=== PATIENT | female | born 1945 | race Caucasian/White ===

== ENCOUNTER 2017-10-18 06:50 | Emergency (ER) | payer OTHER ==
[2017-10-18] MEDS ORDERED: SODIUM CHLORIDE 0.9% FLUSH 10 ML SOL IV PRN (07:01)
[2017-10-18] MEDS ORDERED: NITROGLYCERIN 0.4 MG TAB SL PRN (07:01)
[2017-10-18 07:09] LABS: BASOPHILS % (AUTO) 0 % (0-3); EOSINOPHILS % (AUTO) 2 % (0-9); HEMATOCRIT 40 % (35-47); MEAN CORPUSCULAR HGB CONC 35.3 gm/dl (32.0-36.0); MEAN CORPUSCULAR VOLUME 86 fL (81-99); MONOCYTES % (AUTO) 7.7 % (0-12); NEUTROPHILS % (AUTO) 70.6 % (37-80)
[2017-10-18 07:12] VITALS: TEMP 98.2
[2017-10-18] MEDS ORDERED: SODIUM CHLORIDE 0.9% 1000ML 300 ML IV ONE (07:25)
[2017-10-18] MEDS ORDERED: SODIUM CHLORIDE 0.9% 500 ML SOL IV SCH (07:30)
[2017-10-18 07:32] LABS: CALCIUM 8.7 mg/dl (8.5-10.1); GLOM FILT RATE 46 mL/min (>60); POTASSIUM 3.7 mMol/L (3.5-5.1); SODIUM 140 mMol/L (136-145)
[2017-10-18 08:17] VITALS: RESP 18; O2SAT 97
[2017-10-18 08:18] VITALS: BP 101/60; PULSE 64
== END 2017-10-18 08:50 | disposition home or self-care (01) | DRG 313 ==
LOC: ED 06:50
DX: R07.9 Chest pain, unspecified (principal); I25.10 Atherosclerotic heart disease of native coronary artery without angina pectoris; R06.00 Dyspnea, unspecified; R51 Headache
CPT/HCPCS: 36415; 71010; 80048; 82550; 84484; 85025; 85610; 85730; 93005; 99284

== ENCOUNTER 2019-02-26 22:54 | Emergency (ER) | payer OTHER ==
[2019-02-26 23:05] VITALS: RESP 18; TEMP 97.9
[2019-02-26] MEDS ORDERED: KETOROLAC TROMETHAMINE 30 MG/ML SOL IV ONE (23:19)
[2019-02-26] MEDS ORDERED: KETOROLAC TROMETHAMINE 30 MG/ML SOL ONE (23:19)
[2019-02-27 00:26] VITALS: BP 136/90
[2019-02-27 00:27] LABS: BASOPHILS % (AUTO) 1 % (0-3); EOSINOPHILS % (AUTO) 1 % (0-9); HEMATOCRIT 39 % (35-47); LYMPHOCYTES % (AUTO) 7.6 % (10-50); MEAN CORPUSCULAR HEMOGLOBIN 29.8 pg (27.0-32.0); MEAN CORPUSCULAR VOLUME 90 fL (81-99); MONOCYTES % (AUTO) 6.9 % (0-12); NEUTROPHILS % (AUTO) 84.3 % (37-80)
[2019-02-27 00:34] LABS: CALCIUM 8.6 mg/dl (8.5-10.1); CARBON DIOXIDE 28.5 mEq/L (21-32); CREATININE 0.97 mg/dl (0.60-1.00); POTASSIUM 3.8 mMol/L (3.5-5.1)
[2019-02-27 00:44] VITALS: PULSE 95; O2SAT 90
[2019-02-27] MEDS ORDERED: SODIUM CHLORIDE 0.9% FLUSH 10 ML SOL IV PRN (23:15)
== END 2019-02-27 00:40 | disposition short-term general hospital (02) | DRG 536 ==
LOC: ED 22:54
DX: S72.001A Fracture of unspecified part of neck of right femur, initial encounter for closed fracture (principal); W19.XXXA Unspecified fall, initial encounter
CPT/HCPCS: 36415; 73502; 80048; 85025; 96374; 99284; 99285; G0390; J1885

== ENCOUNTER 2019-04-09 13:49 | Emergency (ER) | payer MEDICARE, OTHER ==
[2019-04-09 14:00] VITALS: TEMP 98.3
[2019-04-09 14:51] LABS: BASOPHILS % (AUTO) 1 % (0-3); EOSINOPHILS % (AUTO) 5 % (0-9); HEMATOCRIT 38 % (35-47); HEMOGLOBIN 12.3 gm/dl (12.0-15.5); LYMPHOCYTES % (AUTO) 20.1 % (10-50); MEAN CORPUSCULAR HEMOGLOBIN 30.2 pg (27.0-32.0); MEAN CORPUSCULAR HGB CONC 32.2 gm/dl (32.0-36.0); MEAN CORPUSCULAR VOLUME 94 fL (81-99); MONOCYTES % (AUTO) 10.3 % (0-12); NEUTROPHILS % (AUTO) 63.8 % (37-80)
[2019-04-09 14:52] VITALS: BP 107/59; PULSE 63; RESP 18
[2019-04-09 14:56] LABS: ALBUMIN 2.6 gm/dl (3.4-5.0); ALKALINE PHOSPHATASE 166 IU/L (46-116); ALT 32 IU/L (14-63); AST 51 IU/L (15-37); BILIRUBIN,TOTAL 0.6 mg/dl (0.2-1.0); BLOOD UREA NITROGEN 21 mg/dl (7-18); CALCIUM 11.9 mg/dl (8.5-10.1); CHLORIDE 101 mMol/L (98-107); GLUCOSE 124 mg/dl (74-106); POTASSIUM 3.3 mMol/L (3.5-5.1); SODIUM 142 mMol/L (136-145); TOTAL PROTEIN 6.7 gm/dl (6.4-8.2); TROP I < 0.017 ng/ml (0.000-0.056)
[2019-04-09 14:58] LABS: CARBON DIOXIDE 40.5 mEq/L (21-32)
[2019-04-09 16:03] VITALS: O2SAT 95
== END 2019-04-09 16:00 | DRG 156 ==
LOC: ED 13:49
DX: H93.13 Tinnitus, bilateral (principal); R09.02 Hypoxemia; R06.2 Wheezing
CPT/HCPCS: 36415; 80053; 83880; 84484; 85025; 99283

== ENCOUNTER 2019-04-16 16:51 | Inpatient (IN) | payer OTHER ==
[2019-04-16] MEDS ORDERED: SODIUM CHLORIDE 0.9% 500 ML 500 ML IV ONE ×2 (16:55→18:24)
[2019-04-16 17:19] LABS: BASOPHILS % (AUTO) 1 % (0-3); EOSINOPHILS % (AUTO) 6 % (0-9); HEMATOCRIT 37 % (35-47); HEMOGLOBIN 12.2 gm/dl (12.0-15.5); LYMPHOCYTES % (AUTO) 22.1 % (10-50); MEAN CORPUSCULAR HEMOGLOBIN 30.2 pg (27.0-32.0); MEAN CORPUSCULAR HGB CONC 32.8 gm/dl (32.0-36.0); MEAN CORPUSCULAR VOLUME 92 fL (81-99); MONOCYTES % (AUTO) 9.9 % (0-12); NEUTROPHILS % (AUTO) 61.9 % (37-80)
[2019-04-16] MEDS: SODIUM CHLORIDE 0.9% FLUSH 10 ML SOL IV SCH (17:20)
[2019-04-16 17:58] LABS: ALBUMIN 2.8 gm/dl (3.4-5.0); BILIRUBIN,TOTAL 0.5 mg/dl (0.2-1.0); CARBON DIOXIDE 43.8 mEq/L (21-32); CREATININE 2.06 mg/dl (0.60-1.00); POTASSIUM 3.2 mMol/L (3.5-5.1); TOTAL PROTEIN 6.6 gm/dl (6.4-8.2)
[2019-04-16 18:14] LABS: CALCIUM 14.7 mg/dl (8.5-10.1)
[2019-04-16] MEDS ORDERED: BISACODYL 10 MG SUP PR PRN (18:28)
[2019-04-16] MEDS ORDERED: POTASSIUM CHLORIDE 2 MEQ/ML 60 MEQ, LIDOCAINE HCL 1% MDV 2 ML in SODIUM CHLORIDE 0.9% 1... IV ONE (18:37)
[2019-04-16 19:15] LABS: THYROID STIMULATING HORMONE 4.196 uIU/ml (0.358-3.740); TROP I < 0.017 ng/ml (0.000-0.056)
[2019-04-16] MEDS: [UNRECOGNIZED DRUG - OTHER] SC SCH (19:20)
[2019-04-16] MEDS ORDERED: LIDOCAINE HCL 1% MPF 30 SOL ONE (19:36)
[2019-04-16] MEDS ORDERED: POTASSIUM CHLORIDE 2 MEQ/ML SOL IV ONE (19:37)
[2019-04-16] MEDS: GABAPENTIN 300 MG CAP PO SCH (20:43)
[2019-04-16] MEDS: POLYETHYLENE GLYCOL 17 GM/1 TBS PDS PO PRN (20:43)
[2019-04-16] MEDS: SENNOSIDES A AND B 8.6 MG TAB PO PRN (20:47)
[2019-04-16] MEDS: DOCUSATE SODIUM 100 MG SGL PO PRN (20:47)
[2019-04-16] MEDS: ENOXAPARIN 40 MG SOL SC SCH (20:48)
[2019-04-16] MEDS ORDERED: RANITIDINE HCL 150 MG TAB PO SCH (21:00)
[2019-04-16 23:42] LABS: ALBUMIN 2.8 gm/dl (3.4-5.0); BILIRUBIN,TOTAL 0.5 mg/dl (0.2-1.0); CARBON DIOXIDE 39.3 mEq/L (21-32); CREATININE 1.98 mg/dl (0.60-1.00); MAGNESIUM 2.2 mg/dl (1.8-2.4); POTASSIUM 3.4 mMol/L (3.5-5.1); TOTAL PROTEIN 6.8 gm/dl (6.4-8.2)
[2019-04-16 23:44] LABS: CALCIUM 13.9 mg/dl (8.5-10.1)
[2019-04-17] MEDS: SODIUM CHLORIDE 0.9% FLUSH 10 ML SOL IV SCH ×3 (03:27→19:19)
[2019-04-17] MEDS: ACETAMINOPHEN 325 MG PO PRN ×2 (05:40→09:50)
[2019-04-17 07:29] LABS: BASOPHILS % (AUTO) 1 % (0-3); EOSINOPHILS % (AUTO) 5 % (0-9); HEMATOCRIT 36 % (35-47); HEMOGLOBIN 11.7 gm/dl (12.0-15.5); LYMPHOCYTES % (AUTO) 21.1 % (10-50); MEAN CORPUSCULAR HEMOGLOBIN 30.6 pg (27.0-32.0); MEAN CORPUSCULAR HGB CONC 32.9 gm/dl (32.0-36.0); MEAN CORPUSCULAR VOLUME 93 fL (81-99); NEUTROPHILS % (AUTO) 63.4 % (37-80)
[2019-04-17 07:58] LABS: ALBUMIN 2.6 gm/dl (3.4-5.0); BILIRUBIN,TOTAL 0.4 mg/dl (0.2-1.0); CARBON DIOXIDE 38.1 mEq/L (21-32); TOTAL PROTEIN 6.5 gm/dl (6.4-8.2)
[2019-04-17 07:59] LABS: CALCIUM 13.3 mg/dl (8.5-10.1); POTASSIUM 3.5 mMol/L (3.5-5.1)
[2019-04-17] MEDS ORDERED: [UNRECOGNIZED DRUG - OTHER] SC ONE (08:25)
[2019-04-17] MEDS ORDERED: CALCITONIN (SALMON) 200 IU/Actuation SPR NAS SCH (09:00)
[2019-04-17] MEDS ORDERED: METOPROLOL SUCCINATE 25 MG TAB.ER.24H PO SCH (09:00)
[2019-04-17] MEDS: SODIUM CHLORIDE 0.9% 1000ML 1,000 ML IV SCH (09:38)
[2019-04-17] MEDS: ASPIRIN 325 MG TAB PO SCH (09:44)
[2019-04-17] MEDS: GABAPENTIN 300 MG CAP PO SCH ×2 (09:44→21:10)
[2019-04-17] MEDS: METOPROLOL SUCCINATE 50 MG TER PO SCH (09:45)
[2019-04-17] MEDS: FAMOTIDINE 20 MG TAB PO SCH ×2 (09:46→21:10)
[2019-04-17] MEDS: [UNRECOGNIZED DRUG - OTHER] SC SCH (12:34)
[2019-04-17] MEDS ORDERED: [UNRECOGNIZED DRUG - OTHER] SC PRN (13:00)
[2019-04-17] MEDS: DOCUSATE SODIUM 100 MG SGL PO PRN (13:25)
[2019-04-17] MEDS: SENNOSIDES A AND B 8.6 MG TAB PO PRN (13:25)
[2019-04-17] MEDS ORDERED: APAP/HYDROCODONE 1 EACH TABLET PO PRN (15:09)
[2019-04-17] MEDS ORDERED: LACTULOSE 10 GM/15 ML SOL PO ONE (15:30)
[2019-04-17 16:23] LABS: ALBUMIN 2.7 gm/dl (3.4-5.0); BILIRUBIN,TOTAL 0.5 mg/dl (0.2-1.0); CALCIUM 12.5 mg/dl (8.5-10.1); CREATININE 2.26 mg/dl (0.60-1.00); POTASSIUM 3.2 mMol/L (3.5-5.1); TOTAL PROTEIN 6.7 gm/dl (6.4-8.2)
[2019-04-17 16:28] LABS: CARBON DIOXIDE 36.8 mEq/L (21-32)
[2019-04-17] MEDS ORDERED: POTASSIUM CHLORIDE 2 MEQ/ML 60 MEQ, LIDOCAINE HCL 1% MDV 2 ML in SODIUM CHLORIDE 0.9% 1... IV ONE (16:49)
[2019-04-17] MEDS ORDERED: POTASSIUM CHLORIDE 2 MEQ/ML SOL IV ONE (17:21)
[2019-04-17] MEDS ORDERED: LIDOCAINE HCL 1% MPF 30 SOL ONE (17:22)
[2019-04-17] MEDS: ENOXAPARIN 40 MG SOL SC SCH (21:10)
[2019-04-18] MEDS: SODIUM CHLORIDE 0.9% 1000ML 1,000 ML IV SCH ×3 (02:40→15:31)
[2019-04-18] MEDS: SODIUM CHLORIDE 0.9% FLUSH 10 ML SOL IV SCH ×3 (02:40→20:38)
[2019-04-18 06:58] LABS: BASOPHILS % (AUTO) 0 % (0-3); EOSINOPHILS % (AUTO) 4 % (0-9); HEMATOCRIT 35 % (35-47); HEMOGLOBIN 11.5 gm/dl (12.0-15.5); LYMPHOCYTES % (AUTO) 16.4 % (10-50); MEAN CORPUSCULAR HEMOGLOBIN 30.5 pg (27.0-32.0); MEAN CORPUSCULAR HGB CONC 32.7 gm/dl (32.0-36.0); MEAN CORPUSCULAR VOLUME 93 fL (81-99); MONOCYTES % (AUTO) 9.2 % (0-12)
[2019-04-18 07:12] LABS: ALBUMIN 2.6 gm/dl (3.4-5.0); BILIRUBIN,TOTAL 0.4 mg/dl (0.2-1.0); CALCIUM 12.2 mg/dl (8.5-10.1); CARBON DIOXIDE 34.6 mEq/L (21-32); CREATININE 2.48 mg/dl (0.60-1.00); MAGNESIUM 1.9 mg/dl (1.8-2.4); POTASSIUM 3.7 mMol/L (3.5-5.1); TOTAL PROTEIN 6.5 gm/dl (6.4-8.2)
[2019-04-18] MEDS: ASPIRIN 325 MG TAB PO SCH (08:59)
[2019-04-18] MEDS: FAMOTIDINE 20 MG TAB PO SCH ×2 (09:00→20:39)
[2019-04-18] MEDS: GABAPENTIN 300 MG CAP PO SCH ×2 (09:00→20:38)
[2019-04-18] MEDS: METOPROLOL SUCCINATE 50 MG TER PO SCH (09:54)
[2019-04-18] MEDS: POLYETHYLENE GLYCOL 17 GM/1 TBS PDS PO PRN (13:19)
[2019-04-18 13:38] LABS: APPEARANCE,URINE Clear; BILIRUBIN,URINE NEGATIVE (NEGATIVE); COLOR,URINE Yellow; GLUCOSE, URINE (UA) NEGATIVE (NEGATIVE); KETONES,URINE NEGATIVE (NEGATIVE); LEUKOCYTE ESTERASE ,URINE 1+ (NEGATIVE); NITRATE,URINE NEGATIVE (NEGATIVE); OCCULT BLOOD,URINE NEGATIVE (NEG-TRACE); PH,URINE 7.5; UROBILINOGEN,URINE 0.2 (0.2-1.0 EU)
[2019-04-18 13:55] LABS: BACTERIA 1+ (< 1+); CRYSTALS NEGATIVE (0-3 AVE/HPF); RBC,URINE 0-2 (0-3AV/HPF)
[2019-04-18 15:13] LABS: ALBUMIN 2.6 gm/dl (3.4-5.0); BILIRUBIN,TOTAL 0.4 mg/dl (0.2-1.0); CALCIUM 11.9 mg/dl (8.5-10.1); CREATININE 2.5 mg/dl (0.60-1.00); POTASSIUM 3.7 mMol/L (3.5-5.1); TOTAL PROTEIN 6.5 gm/dl (6.4-8.2)
[2019-04-18 15:17] LABS: CARBON DIOXIDE 33.1 mEq/L (21-32)
[2019-04-18] MEDS: ACETAMINOPHEN 325 MG PO PRN (15:33)
[2019-04-18] MEDS: ENOXAPARIN 40 MG SOL SC SCH (20:38)
[2019-04-18] MEDS: SENNOSIDES A AND B 8.6 MG TAB PO PRN (20:39)
[2019-04-18] MEDS: DOCUSATE SODIUM 100 MG SGL PO PRN (20:39)
[2019-04-18 22:11] LABS: *CREATININE URINE RANDOM 32.9 mg/dL; *PROTEIN URINE RANDOM 12.5 mg/dL (1.0-14.0)
[2019-04-19] MEDS: SODIUM CHLORIDE 0.9% 1000ML 1,000 ML IV SCH ×3 (01:26→22:36)
[2019-04-19] MEDS: SODIUM CHLORIDE 0.9% FLUSH 10 ML SOL IV SCH ×6 (01:26→21:02)
[2019-04-19 07:19] LABS: ALBUMIN 2.5 gm/dl (3.4-5.0); BILIRUBIN,TOTAL 0.4 mg/dl (0.2-1.0); CALCIUM 12.2 mg/dl (8.5-10.1); CREATININE 2.43 mg/dl (0.60-1.00); POTASSIUM 3.4 mMol/L (3.5-5.1); TOTAL PROTEIN 6.4 gm/dl (6.4-8.2)
[2019-04-19] MEDS: ACETAMINOPHEN 325 MG PO PRN ×3 (07:22→22:24)
[2019-04-19] MEDS ORDERED: ZOLEDRONIC ACID IV ONE ×2 (08:42→10:00)
[2019-04-19] MEDS ORDERED: [UNRECOGNIZED DRUG - OTHER] SC ONE ×2 (08:43→10:00)
[2019-04-19] MEDS ORDERED: POTASSIUM CHLORIDE 2 MEQ/ML 60 MEQ, LIDOCAINE HCL 1% MDV 2 ML in SODIUM CHLORIDE 0.9% 1... IV ONE ×2 (08:46→10:00)
[2019-04-19] MEDS: ASPIRIN 325 MG TAB PO SCH (09:03)
[2019-04-19] MEDS: GABAPENTIN 300 MG CAP PO SCH ×2 (09:03→21:03)
[2019-04-19] MEDS: METOPROLOL SUCCINATE 25 MG TAB.ER.24H PO SCH (09:04)
[2019-04-19] MEDS: FAMOTIDINE 20 MG TAB PO SCH ×2 (09:04→21:03)
[2019-04-19] MEDS: POLYETHYLENE GLYCOL 17 GM/1 TBS PDS PO PRN ×2 (09:08→21:02)
[2019-04-19] MEDS ORDERED: POTASSIUM CHLORIDE 2 MEQ/ML SOL IV ONE (10:07)
[2019-04-19] MEDS ORDERED: LIDOCAINE HCL 1% MPF 30 SOL ONE (10:08)
[2019-04-19] MEDS ORDERED: ZOLEDRONIC ACID 4 MG/5 ML IV NR (10:45)
[2019-04-19] MEDS ORDERED: CEFTRIAXONE 1 GM PDS 1 GM in SODIUM CHLORIDE 0.9% 50 ML 50 ML IV SCH (15:00)
[2019-04-19] MEDS ORDERED: DOXYCYCLINE 100 MG PDS 100 MG in SODIUM CHLORIDE 0.9% 100 ML 100 ML IV SCH (16:00)
[2019-04-19] MEDS: DOCUSATE SODIUM 100 MG SGL PO PRN (21:02)
[2019-04-19] MEDS: SENNOSIDES A AND B 8.6 MG TAB PO PRN (21:03)
[2019-04-19] MEDS: ENOXAPARIN 40 MG SOL SC SCH (21:03)
[2019-04-19] MEDS: QUETIAPINE FUMARATE 25 MG TAB PO PRN (22:23)
[2019-04-20] MEDS: SODIUM CHLORIDE 0.9% FLUSH 10 ML SOL IV SCH ×3 (00:01→19:01)
[2019-04-20 07:38] LABS: BASOPHILS % (AUTO) 1 % (0-3); EOSINOPHILS % (AUTO) 6 % (0-9); HEMATOCRIT 35 % (35-47); HEMOGLOBIN 11.2 gm/dl (12.0-15.5); LYMPHOCYTES % (AUTO) 20.9 % (10-50); MEAN CORPUSCULAR HEMOGLOBIN 29.8 pg (27.0-32.0); MEAN CORPUSCULAR HGB CONC 32.3 gm/dl (32.0-36.0); MEAN CORPUSCULAR VOLUME 92 fL (81-99); MONOCYTES % (AUTO) 10.4 % (0-12); NEUTROPHILS % (AUTO) 62.1 % (37-80)
[2019-04-20 08:25] LABS: ALBUMIN 2.4 gm/dl (3.4-5.0); BILIRUBIN,TOTAL 0.4 mg/dl (0.2-1.0); CALCIUM 11.1 mg/dl (8.5-10.1); CARBON DIOXIDE 24.4 mEq/L (21-32); CREATININE 2.15 mg/dl (0.60-1.00); POTASSIUM 3.4 mMol/L (3.5-5.1)
[2019-04-20] MEDS: SODIUM CHLORIDE 0.9% 1000ML 1,000 ML IV SCH ×2 (09:18→22:56)
[2019-04-20] MEDS: ASPIRIN 325 MG TAB PO SCH (09:19)
[2019-04-20] MEDS: FAMOTIDINE 20 MG TAB PO SCH ×2 (09:20→20:42)
[2019-04-20] MEDS: POTASSIUM CHLORIDE 10 MEQ TER PO SCH ×2 (09:20→12:17)
[2019-04-20] MEDS: GABAPENTIN 300 MG CAP PO SCH ×2 (09:20→20:42)
[2019-04-20] MEDS: METOPROLOL SUCCINATE 25 MG TAB.ER.24H PO SCH (09:21)
[2019-04-20] MEDS: ENOXAPARIN 40 MG SOL SC SCH (20:39)
[2019-04-20] MEDS: QUETIAPINE FUMARATE 25 MG TAB PO PRN (20:42)
[2019-04-21 01:05] VITALS: TEMP 97.5
[2019-04-21] MEDS: SODIUM CHLORIDE 0.9% FLUSH 10 ML SOL IV SCH ×2 (01:20→09:33)
[2019-04-21 07:26] VITALS: BP 149/77; RESP 24
[2019-04-21 07:27] LABS: CALCIUM 10.7 mg/dl (8.5-10.1); CARBON DIOXIDE 27.6 mEq/L (21-32); CREATININE 2.12 mg/dl (0.60-1.00); POTASSIUM 3.7 mMol/L (3.5-5.1)
[2019-04-21 07:29] LABS: BASOPHILS % (AUTO) 1 % (0-3); EOSINOPHILS % (AUTO) 6 % (0-9); HEMATOCRIT 34 % (35-47); LYMPHOCYTES % (AUTO) 23.4 % (10-50); MEAN CORPUSCULAR HEMOGLOBIN 30.1 pg (27.0-32.0); MEAN CORPUSCULAR HGB CONC 32.1 gm/dl (32.0-36.0); MEAN CORPUSCULAR VOLUME 94 fL (81-99); MONOCYTES % (AUTO) 10.6 % (0-12); NEUTROPHILS % (AUTO) 58.8 % (37-80)
[2019-04-21 07:44] VITALS: PULSE 84; O2SAT 92
[2019-04-21] MEDS: ASPIRIN 325 MG TAB PO SCH (08:55)
[2019-04-21] MEDS: FAMOTIDINE 20 MG TAB PO SCH (08:56)
[2019-04-21] MEDS: METOPROLOL SUCCINATE 25 MG TAB.ER.24H PO SCH (08:56)
[2019-04-21] MEDS: GABAPENTIN 300 MG CAP PO SCH (08:56)
[2019-04-21] MEDS: SODIUM CHLORIDE 0.9% 1000ML 1,000 ML IV SCH (09:32)
== END 2019-04-21 09:57 | disposition short-term general hospital (02) | DRG 641 ==
LOC: ACUTE CARE 17:00
PROVIDERS: ADMIT Family Medicine; ATTEND Family Medicine
DX: E83.52 Hypercalcemia (principal); N17.9 Acute kidney failure, unspecified; I25.10 Atherosclerotic heart disease of native coronary artery without angina pectoris; R09.02 Hypoxemia; I10 Essential (primary) hypertension; E55.9 Vitamin D deficiency, unspecified; R06.02 Shortness of breath; R41.0 Disorientation, unspecified
CPT/HCPCS: 36415; 70450; 71045; 71250; 72120; 74176; 80048; 80053; 81001; 83735; 83880; 84100; 84443; 84484; 85025; 87088; 93005; 93012; 93306; 99070; J0630; J1650; J3480; J3489; A6232; A6446; A9270-GY; J2001